=== PATIENT | female | born 1985 | race Caucasian/White ===

== ENCOUNTER 2017-07-25 20:22 | Emergency (ER) | payer OTHER ==
[~2017-07-25] VITALS: Ht 167.6 cm; Wt 77.1 kg
[~2017-07-25 20:22] MED LIST: BIRTH CONTROL; CYCLOBENZAPRINE10 MG PO; IBUPROFEN800 MG PO; MONO-LINYAH1 EACH PO; NAPROXEN500 MG PO; NORCO 5-325 TA1 EACH PO; PERCOCET 5-3251 EACH PO; SILVADENE20 GM TOP; ZOFRAN4 MG PO
[2017-07-26] MEDS ORDERED: NORCO 5-325 TA1 EACH PO (00:35)
[2017-07-26] MEDS ORDERED: ZOFRAN ODT4 MG PO (00:35)
== END 2017-07-26 01:07 | disposition home or self-care (01) ==
LOC: ED 20:22
DX: N83.202 Unspecified ovarian cyst, left side (principal); F17.200 Nicotine dependence, unspecified, uncomplicated; Z90.49 Acquired absence of other specified parts of digestive tract; Z88.0 Allergy status to penicillin; Z88.5 Allergy status to narcotic agent
CPT/HCPCS: 36415; 76830; 76856; 80053; 81001; 83690; 84703; 85025; 85027; 96374; 96375; 99284; J1170; J2405; J2550